=== PATIENT | male | born 1965 | race Caucasian/White ===

== ENCOUNTER 2018-02-17 10:44 | Emergency (ER) | payer BC ==
[~2018-02-17] VITALS: Ht 188 cm; Wt 130.5 kg
[2018-02-17 10:46] VITALS: TEMP 98
[2018-02-17] MEDS ORDERED: MOTRIN 200200 MG/TAB PO (11:04)
[2018-02-17 11:34] LABS: BASO % 0.9 % (0.0-2.0); EOS # 0.1 (0.0-0.7); GRAN # 2.5 (1.4-6.5); GRAN % 53.7 % (42.2-75.2); HEMATOCRIT 45.8 % (42.0-52.0); LYMPH # 1.5 (1.2-3.4); LYMPH % 32.4 % (20.0-51.0); MEAN CELL VOLUME 94 fl (80.0-100.0); MEAN CORPUSCULAR HEMOGLOBIN 31 pg (27.0-31.0); MEAN CORPUSCULAR HGB CONC 33 g/dl (33.0-37.0); MEAN PLATELET VOLUME 10.3 fl (7.4-10.4); MONO # 0.5 (0.1-0.6); MONO % 9.8 % (1.7-9.3); PLATELET COUNT 244 K/mm3 (130-400); RED BLOOD COUNT 4.88 M/mm3 (4.20-5.60)
[2018-02-17 11:42] LABS: ALANINE AMINOTRANSFERASE 57 U/L (21-72); ALBUMIN 3.9 gm/dL (3.5-5.0); ALKALINE PHOSPHATASE 86 U/L (50-136); ANION GAP 11 mmol/L (7-16); AST,SGOT 30 U/L (15-37); BILIRUBIN,TOTAL 0.6 mg/dL (0.0-1.0); BLOOD UREA NITROGEN 11 mg/dL (9-20); CALCIUM 8.7 mg/dL (8.4-10.2); CARBON DIOXIDE 30 mmol/L (22-30); CHLORIDE 103 mmol/L (98-107); CREATININE, serum 0.83 mg/dL (0.66-1.25); GLUCOSE 96 mg/dL (74-106); LIPASE 35 U/L (23-300); SODIUM 143 mmol/L (137-145); TOTAL PROTEIN 6.9 gm/dL (6.4-8.2)
[2018-02-17 11:54] LABS: TROPONIN-I < 0.012 ng/mL (0.000-0.034)
[2018-02-17 12:11] VITALS: BP 123/91; PULSE 64
== END 2018-02-17 12:16 | disposition home or self-care (01) ==
LOC: COL.ER 10:44
PROVIDERS: Physician Assistant
DX: R07.89 Other chest pain (principal); E78.5 Hyperlipidemia, unspecified

== ENCOUNTER → 2018-07-12 | Outpatient (CLI) | payer BC ==
[~2018-07-12] MED LIST: LIPITOR20 MG PO; MOTRIN 200200 MG/TAB PO
== END ==
LOC: COL.RAD 09:45
DX: E04.2 Nontoxic multinodular goiter (principal)

== ENCOUNTER → 2018-08-18 | Outpatient (REF) ==
[2018-08-18 19:45] LABS: ALBUMIN 3.7 gm/dL (3.5-5.0); CALCIUM 8.8 mg/dL (8.4-10.2); PHOSPHOROUS 2.8 mg/dL (2.5-4.5)
[2018-08-22 11:47] LABS: THYROGLOBULIN AB SCREEN <1.8 IU/mL (<4.0)
[2018-08-22 16:48] LABS: THYROGLOBULIN TUMOR MARKER 6350 ng/mL (())
== END ==
LOC: ZMSC 18:44
PROVIDERS: Student in an Organized Health Care Education/Training Program
DX: Z01.89 Encounter for other specified special examinations (principal)

== ENCOUNTER → 2018-08-19 | Outpatient (REF) ==
[2018-08-19 06:14] LABS: ALBUMIN 3.6 gm/dL (3.5-5.0); CALCIUM 8.5 mg/dL (8.4-10.2); PHOSPHOROUS 4.1 mg/dL (2.5-4.5)
[2018-08-19 15:33] LABS: ALBUMIN 3.6 gm/dL (3.5-5.0); CALCIUM 8.5 mg/dL (8.4-10.2); PHOSPHOROUS 4.4 mg/dL (2.5-4.5)
== END ==
LOC: ZMSC 05:49
PROVIDERS: Student in an Organized Health Care Education/Training Program
DX: Z01.89 Encounter for other specified special examinations (principal)